=== PATIENT | female | born 1985 | race Caucasian/White ===

== ENCOUNTER 2016-11-23 20:46 | Emergency (ER) | payer MEDICAID ==
[~2016-11-23] VITALS: Ht 152.4 cm; Wt 73.5 kg
[2016-11-23 20:51] VITALS: BP 122/75; PULSE 114; RESP 15; TEMP 97.5; O2SAT 97
[2016-11-24 00:33] VITALS: BP 122/75; PULSE 100; RESP 15; TEMP 97.5; O2SAT 97
== END 2016-11-24 00:33 | disposition home or self-care (01) ==
LOC: SED 20:46
DX: H65.91 Unspecified nonsuppurative otitis media, right ear (principal); Z88.1 Allergy status to other antibiotic agents; Z88.2 Allergy status to sulfonamides
CPT/HCPCS: 99281

== ENCOUNTER 2017-01-27 12:53 | Emergency (ER) | payer MEDICAID ==
[~2017-01-27] VITALS: Ht 152.4 cm; Wt 72.6 kg
[2017-01-27 12:53] VITALS: BP_SYST 151
[2017-01-27] MEDS ORDERED: FAMOTIDINE PF 20 MG/2 ML VIAL IVP ONE (17:15)
[2017-01-27] MEDS ORDERED: methylPREDNISolone SOD SUCC 500 MG/VIAL (Solu-MEDROL) IV ONE (17:15)
[2017-01-27] MEDS ORDERED: DIPHENHYDRAMINE INJ 50 MG/ML VIAL IVP ONE (17:15)
[2017-01-27] MEDS ORDERED: NS 500 ML IV ONE (17:15)
[2017-01-27 18:23] VITALS: BP_SYST 115
== END 2017-01-27 18:23 | disposition home or self-care (01) ==
LOC: SED 12:53
DX: L29.9 Pruritus, unspecified (principal); R21 Rash and other nonspecific skin eruption; T36.3X5A Adverse effect of macrolides, initial encounter; Y92.89 Other specified places as the place of occurrence of the external cause; Z88.1 Allergy status to other antibiotic agents; Z88.2 Allergy status to sulfonamides; Z88.8 Allergy status to other drugs, medicaments and biological substances
CPT/HCPCS: 96374; 96375; 99284; J1200; J3490

== ENCOUNTER 2018-03-11 07:53 | Emergency (ER) | payer BC, MEDICAID ==
[~2018-03-11] VITALS: Ht 152.4 cm; Wt 74.8 kg
[2018-03-11 08:02] VITALS: BP_SYST 124
--- NOTE | 2018-03-11 08:09 | NUR ---
Patient to ER bed 7 to gown for evaluation. Side rails up. Report given to Anthony CROCKER.
--- NOTE | 2018-03-11 08:19 | NUR ---
Pt complains of vaginal bleed since this morning. Pt states she is 12 weeks and woke up this morning with blood on her bed and when she went to the bathroom, "toilet was full of blood." Pt reports she has 4/10 abdominal cramping. Pt denies N/V or fever. No other injuries/complaints per patient or noted. at bedside.
--- NOTE | 2018-03-11 08:50 | NUR ---
ER Dr. Rosales at bedside examining patient.
[2018-03-11 09:31] LABS: BASOPHILS % (AUTO) 0.4 % (0.0-2.0); EOSINOPHILS # (AUTO) 0.2 K/uL (0.0-0.4); EOSINOPHILS % (AUTO) 1.7 % (0.0-4.0); HEMOGLOBIN 11.7 g/dL (12.0-16.0); LYMPHOCYTES # (AUTO) 1.5 K/uL (1.0-5.5); LYMPHOCYTES % (AUTO) 15.5 % (20.5-51.5); MEAN CORPUSCULAR HEMOGLOBIN 29 pg (27-31); MEAN CORPUSCULAR HGB CONC 33 % (32-36); MEAN CORPUSCULAR VOLUME 88 fL (79.0-98.0); MONOCYTES # (AUTO) 0.4 K/uL (0.0-1.0); MONOCYTES % (AUTO) 4.1 % (1.7-9.3); NEUTROPHILS # (AUTO) 7.3 K/uL (1.8-7.7); NEUTROPHILS % (AUTO) 78.3 % (40.0-70.0); PLATELET COUNT (AUTO) 281 K/uL (130-430); RED CELL DISTRIBUTION WIDTH 12.8 % (9.0-15.0); WHITE BLOOD COUNT (AUTO) 9.4 K/uL (4.8-10.8)
[2018-03-11 10:29] VITALS: BP_SYST 115
--- NOTE | 2018-03-11 10:29 | NUR ---
Patient given written and verbal discharge instructions and verbalizes understanding. ER MD discussed with patient the results and treatment provided. Patient in stable condition. ID arm band removed. Rx given. Patient educated on pain management and to follow up with PMD. Pain Scale 0. Opportunity for questions provided and answered. Medication side effect fact sheet provided.
== END 2018-03-11 10:29 | disposition home or self-care (01) ==
LOC: SED 07:53
DX: O20.0 Threatened abortion (principal); Z3A.12 12 weeks gestation of pregnancy; Z88.1 Allergy status to other antibiotic agents; Z88.2 Allergy status to sulfonamides; Z88.8 Allergy status to other drugs, medicaments and biological substances
CPT/HCPCS: 36415; 76805-TC; 81025; 84702-TC; 85025; 86900; 86901; 99285